=== PATIENT | male | born 1970 | race Caucasian/White ===

== ENCOUNTER → 2020-04-10 09:47 | Outpatient (BNVA) | payer OTHER, SELFPAY | PROVIDERS: Referring Provider Nurse Practitioner Family; Visit Provider Nurse Practitioner Family | DX: M25.561 Pain in right knee (principal) | CPT/HCPCS: 73562 ==

== ENCOUNTER → 2020-06-04 09:51 | Outpatient (BNVA) | payer OTHER, SELFPAY | PROVIDERS: PCP Nurse Practitioner Family; Referring Provider Nurse Practitioner Family; Visit Provider Specialist | DX: S82.151A Displaced fracture of right tibial tuberosity, initial encounter for closed fracture (principal); X58.XXXA Exposure to other specified factors, initial encounter; M17.0 Bilateral primary osteoarthritis of knee | CPT/HCPCS: 73560; 73565 ==